=== PATIENT | male | born 1945 | race Caucasian/White ===

== ENCOUNTER 2017-02-14 16:07 | Emergency (ER) | payer MEDICARE ==
[2017-02-14 16:27] VITALS: O2SAT 96
--- NOTE | 2017-02-14 16:35 | ERPHSYRPT ---
- History of Present Illness Time Seen by Provider: 02/14/17 16:27 Source: patient, family Exam Limitations: clinical condition Physician History: The patient is a 71-year-old male with his complaining that he had an episode of confusion about an hour ago. He also had a headache. His headache has subsided and he is feeling better. His said that he is back to his normal self. He denies any pain. He has a mild cough. His past medical history is significant for Parkinson's disease, HTN, and high cholesterol. Timing/Duration: today Fever Severity: mild Fever Therapy FENDER FINISHER: none Associated Symptoms: confusion, cough Allergies/Adverse Reactions: No Known Drug Allergies Allergy (Unverified 02/14/17 16:31) Home Medications: Alendronate Sodium 70 mg [Fosamax 70 MG] 70 mg PO Q7D@0600 02/14/17 [ History] Aspirin 81 mg PO DAILY 02/14/17 [History] Atorvastatin Calcium [Lipitor] 40 mg PO DAILY 02/14/17 [History] Isosorbide Mononitrate 30 mg [Imdur 30 MG] 30 mg PO DAILY 02/14/17 [History ] Losartan Potassium 25 mg PO DAILY 02/14/17 [History] Naproxen 500 mg [Naprosyn 500 MG] 500 mg PO BID 02/14/17 [History] Hx Tetanus, Diphtheria Vaccination/Date Given: Yes Hx Influenza Vaccination/Date Given: Yes Hx Pneumococcal Vaccination/Date Given: No - Review of Systems Constitutional: No Fever, No Chills Eyes: No Symptoms Ears, Nose, & Throat: No Symptoms Respiratory: Cough Cardiac: No Chest Pain, No Edema, No Syncope Abdominal/Gastrointestinal: No Abdominal Pain, No Nausea, No Vomiting, No Diarrhea Genitourinary Symptoms: No Dysuria Musculoskeletal: No Back Pain, No Neck Pain Skin: No Rash Neurological: Headache, Other (confusion) Psychological: No Symptoms Endocrine: No Symptoms Hematologic/Lymphatic: No Symptoms Immunological/Allergic: No Symptoms All Other Systems: Reviewed and Negative - Past Medical History Pertinent Past Medical History: Yes Neurological History: Other Cardiac History: High Cholesterol, Hypertension Respiratory History: COPD - Past Surgical History Past Surgical History: Yes Gastrointestinal: Appendectomy - Social History Smoking Status: Former smoker Exposure to second hand smoke: Yes Drug Use: none Patient Lives Alone: No - Nursing Vital Signs Nursing Vital Signs: Initial Vital Signs Temperature 100.1 F 02/14/17 16:10 Pulse Rate 80 02/14/17 16:10 Respiratory Rate 18 02/14/17 16:10 Blood Pressure 162/98 02/14/17 16:10 O2 Sat by Pulse Oximetry 96 02/14/17 16:10 Pain Scale Pain Intensity 0 - Physical Exam General Appearance: no apparent distress, alert Eye Exam: PERRL/EOMI ENT Exam: normal ENT inspection, No pharyngeal erythema, No tonsillar exudate Neck Exam: supple, full range of motion, No meningismus Respiratory Exam: normal breath sounds, lungs clear, no respiratory distress Cardiovascular/Chest Exam: normal heart sounds, regular rate/rhythm, No murmur, No edema Gastrointestinal/Abdominal Exam: soft, non tender, no distention Rectal Exam: not done Extremity Exam: non-tender, normal range of motion, normal inspection, normal capillary refill, no pedal edema Neurologic Exam: alert, oriented x 3, cooperative, research nutritionist II-XII nml as tested, normal mood/affect, other (Parkinsonian tremors), No confusion Skin Exam: normal color, warm, dry, No rash SpO2 Interpretation: normal - Course EKG Interpreted by Me: RATE, Sinus Rhythm, NORMAL AXIS, NORMAL INTERVALS, Left Bundle Branch Block, NORMAL ST-T - Radiology Exams Chest X-ray Interpretation: Interpreted by me, Negative, Other (scattered granulomas) - CT Exams Head CT Interpretation: Tele-radiologist Report, No/Intracranial Hemorrhag, Other ( No acute intacranial pathology, sinusitis per Dr Espinoza.) Ordered Tests: Active Orders 24 hr Category Date Time Status EKG-ER Only STAT Care 02/14/17 16:36 Active IV Insertion STAT Care 02/14/17 16:36 Active CHEST 2 VIEWS (PA AND LAT) Stat Exams 02/14/17 16:41 Taken HEAD WITHOUT CONTRAST [CT] Stat Exams 02/14/17 16:38 Taken BLOOD CULTURE Stat Lab 02/14/17 16:49 Received CBC W DIFF Stat Lab 02/14/17 16:47 Completed CMP Stat Lab 02/14/17 16:47 Completed Lactic Acid Stat Lab 02/14/17 16:36 Completed TROPONIN Q3H Lab 02/14/17 16:50 Completed TROPONIN Q3H Lab 02/14/17 19:45 Ordered TROPONIN Q3H Lab 02/14/17 22:45 Ordered TROPONIN Q3H Lab 02/15/17 01:45 Ordered TROPONIN Q3H Lab 02/15/17 04:45 Ordered UA W/ MICROSCOPIC Stat Lab 02/14/17 17:54 Completed Medication Summary Discontinued Medications Generic Name Dose Route Start Last Admin Trade Name Gilbert PRN Reason Stop Dose Admin Acetaminophen 650 mg 02/14/17 16:36 02/14/17 16:47 Tylenol 325 Mg PO 02/14/17 16:37 650 mg STAT ONE Administration Acetaminophen Confirm 02/14/17 16:44 Tylenol 325 Mg Administered 02/14/17 16:45 Dose 650 mg .ROUTE .STK-MED ONE Sodium Chloride 1,000 mls @ 999 mls/hr 02/14/17 16:36 02/14/17 16:47 Sodium Chloride 0.9% 1000 Ml IV 02/14/17 17:36 999 mls/hr .Q1H1M STA Administration Sodium Chloride Confirm 02/14/17 16:44 Sodium Chloride 0.9% 1000 Ml Administered 02/14/17 16:45 Dose 1,000 mls @ ud .ROUTE .STK-MED ONE Lab/Rad Data: Laboratory Result Diagrams 02/14/17 16:47 02/14/17 16:47 Laboratory Results 02/14/17 02/14/17 02/14/17 Range/Units 17:54 16:50 16:47 WBC (4.0-10.5) K/mm3 RBC (4.1-5.6) M/mm3 Hgb (12.5-18.0) gm/dl Hct (42-50) % MCV (78-100) fl MCH (26-32) pg MCHC (32-36) g/dl RDW (11.5-14.0) % Plt Count (150-450) K/mm3 MPV (6-9.5) fl Gran % (36.0-66.0) % Lymphocytes % (24.0-44.0) % Monocytes % (0.0-12.0) % Eosinophils % (0.00-5.0) % Basophils % (0.0-0.4) % Basophils # (0-0.4) Sodium 143 (136-145) mEq/L Potassium 4.0 (3.5-5.1) mEq/L Chloride 104 (98-107) mEq/L Carbon Dioxide 29.6 (21-32) mEq/L Anion Gap 13.2 (5-15) MEQ/L BUN 29 H (9-20) mg/dL Creatinine 1.07 (0.55-1.30) mg/dl Estimated GFR > 60 ML/MIN Glucose 116 H (70-110) MG/DL Lactic Acid (0.4-2.0) Calcium 9.0 (8.5-10.1) mg/dL Total Bilirubin 0.50 (0.2-1.0) mg/dL AST 14 L (15-37) U/L ALT 11 L (12-78) U/L Alkaline Phosphatase 167 H (46-116) U/L Troponin I 0.021 (0.000-0.056) ng/ml Serum Total Protein 8.1 (6.4-8.2) gm/dL Albumin 4.0 (3.4-5.0) g/dL Ur Collection Type VOID Urine Color YELLOW (YELLOW) Urine Appearance CLEAR (CLEAR) Urine pH 5.0 (5-6) Ur Specific [place] 1.020 (1.005-1.025) Urine Protein NEGATIVE (Negative) Urine Ketones NEGATIVE (NEGATIVE) Urine Blood NEGATIVE (0-5) Juan Pablo/ul Urine Nitrite NEGATIVE (NEGATIVE) Urine Bilirubin NEGATIVE (NEGATIVE) Urine Urobilinogen NORMAL (0-1) mg/dL Ur Leukocyte Esterase TRACE (NEGATIVE) Urine Microscopic RBC 0-2 (0-2) /HPF Urine Microscopic WBC 2-5 (0-5) /HPF Ur Epithelial Cells FEW (FEW) /HPF Urine Bacteria FEW (NEGATIVE) /HPF Urine Glucose NEGATIVE (NEGATIVE) mg/dL Specimen Received 02/14/17 1800 02/14/17 02/14/17 Range/Units 16:47 16:36 WBC 6.4 (4.0-10.5) K/mm3 RBC 4.53 (4.1-5.6) M/mm3 Hgb 14.6 (12.5-18.0) gm/dl Hct 43.4 (42-50) % MCV 95.8 (78-100) fl MCH 32.2 H (26-32) pg MCHC 33.6 (32-36) g/dl RDW 13.1 (11.5-14.0) % Plt Count 147 L (150-450) K/mm3 MPV 11.0 H (6-9.5) fl Gran % 52.5 (36.0-66.0) % Lymphocytes % 38.1 (24.0-44.0) % Monocytes % 7.5 (0.0-12.0) % Eosinophils % 1.7 (0.00-5.0) % Basophils % 0.2 (0.0-0.4) % Basophils # 0.01 (0-0.4) Sodium (136-145) mEq/L Potassium (3.5-5.1) mEq/L Chloride (98-107) mEq/L Carbon Dioxide (21-32) mEq/L Anion Gap (5-15) MEQ/L BUN (9-20) mg/dL Creatinine (0.55-1.30) mg/dl Estimated GFR ML/MIN Glucose (70-110) MG/DL Lactic Acid 1.0 (0.4-2.0) Calcium (8.5-10.1) mg/dL Total Bilirubin (0.2-1.0) mg/dL AST (15-37) U/L ALT (12-78) U/L Alkaline Phosphatase (46-116) U/L Troponin I (0.000-0.056) ng/ml Serum Total Protein (6.4-8.2) gm/dL Albumin (3.4-5.0) g/dL Ur Collection Type Urine Color (YELLOW) Urine Appearance (CLEAR) Urine pH (5-6) Ur Specific [place] (1.005-1.025) Urine Protein (Negative) Urine Ketones (NEGATIVE) Urine Blood (0-5) Juan Pablo/ul Urine Nitrite (NEGATIVE) Urine Bilirubin (NEGATIVE) Urine Urobilinogen (0-1) mg/dL Ur Leukocyte Esterase (NEGATIVE) Urine Microscopic RBC (0-2) /HPF Urine Microscopic WBC (0-5) /HPF Ur Epithelial Cells (FEW) /HPF Urine Bacteria (NEGATIVE) /HPF Urine Glucose (NEGATIVE) mg/dL Specimen Received - Progress Progress: improved Counseled pt/family regarding: lab results, diagnosis, need for follow-up, rad results - Departure Time of Disposition: 18:25 Departure Disposition: Home Clinical Impression: TIA (transient ischemic attack) Condition: Stable Critical Care Time: No Referrals: RADHA CASTAÑEDA [Primary Care Provider] - Additional Instructions: You had a TIA. You also had a very low-grade fever. You were given Tylenol in the ER. You're also given aspirin 325 mg. Begin taking aspirin 81 mg daily. Follow-up tomorrow.
[2017-02-14] MEDS ORDERED: TYLENOL 325 MG PO ONE (16:36)
[2017-02-14] MEDS ORDERED: Sodium Chloride 0.9% 1000 ML 1,000 ML IV STA (16:36)
[2017-02-14] MEDS ORDERED: Sodium Chloride 0.9% 1000 ML 1,000 ML ONE (16:44)
[2017-02-14] MEDS ORDERED: TYLENOL 325 MG ONE (16:44)
[2017-02-14 16:54] LABS: BASOPHIL % 0.2 % (0.0-0.4); Eosinophil % 1.7 % (0.00-5.0); Granulocytes % 52.5 % (36.0-66.0); Lymphocytes % 38.1 % (24.0-44.0); Mean Cell Volume 95.8 fl (78-100); Mean Corpuscular Hemoglobin 32.2 pg (26-32); Monocytes % 7.5 % (0.0-12.0); Platelet Count 147 K/mm3 (150-450); Red Blood Count 4.53 M/mm3 (4.1-5.6); Red Cell Distribution Width 13.1 % (11.5-14.0); White Blood Count 6.4 K/mm3 (4.0-10.5)
[2017-02-14 17:15] LABS: ALKALINE PHOSPHATASE 167 U/L (46-116); ANION GAP 13.2 MEQ/L (5-15); BLOOD UREA NITROGEN 29 mg/dL (9-20); CHLORIDE 104 mEq/L (98-107); Carbon Dioxide 29.6 mEq/L (21-32); Glucose 116 MG/DL (70-110); SGOT/AST 14 U/L (15-37); SGPT/ALT 11 U/L (12-78); SODIUM 143 mEq/L (136-145); Total Protein 8.1 gm/dL (6.4-8.2)
[2017-02-14 18:17] LABS: ADD URINE CULTURE? NO (NO); Bacteria FEW /HPF (NEGATIVE); Bilirubin NEGATIVE (NEGATIVE); Blood NEGATIVE Ery/ul (0-5); COMPLETE URINE MICROSCOPIC? YES; Collection Type VOID; Epithelial Cells FEW /HPF (FEW); Glucose NEGATIVE (NEGATIVE); Leukocyte Esterase TRACE (NEGATIVE)
[2017-02-14] MEDS ORDERED: Ecotrin 325 MG PO STA (18:26)
[2017-02-14] MEDS ORDERED: BABY ASPIRIN 81 MG CHEW PO ONE (18:34)
[2017-02-14] MEDS ORDERED: BABY ASPIRIN 81 MG CHEW ONE (18:35)
[2017-02-14 18:56] VITALS: BP 162/88; PULSE 96
--- NOTE | 2017-02-14 21:29 | XRAY ---
Indication: Fever and cough. Comparison: None PA/lateral chest hyperinflated and clear with a few incidental calcified granulomas. Heart is not enlarged. Vascularity normal. Bony thorax intact. Impression: Nonacute hyperinflated chest with evidence for old granulomatous disease.
--- NOTE | 2017-02-14 21:32 | XRAY ---
Indication: Headache. Altered mental status. Multiple contiguous axial images obtained through the head without contrast. Comparison: None Age-appropriate global atrophy and minimal periventricular degenerative micro-ischemia bilaterally. No acute intracranial hemorrhage, abnormal extra-axial fluid collection, or mass effect. Fourth ventricle is midline without hydrocephalus. Bony calvarium intact. Visualized paranasal sinuses clear. There is partial opacification of the right mastoid air cells. Impression: 1. Nonacute senile brain. 2. Partial opacification of the right mastoid air cells presumably inflammatory. Comment: Preliminary interpretation was made by [facility]. No discrepancy. CTDI 59.47
== END 2017-02-14 18:56 | disposition home or self-care (01) ==
LOC: ED 16:07
DX: G45.9 Transient cerebral ischemic attack, unspecified (principal); G20 Parkinson's disease; I10 Essential (primary) hypertension; E78.00 Pure hypercholesterolemia, unspecified; R41.0 Disorientation, unspecified; R05 Cough; Z79.899 Other long term (current) drug therapy; J44.9 Chronic obstructive pulmonary disease, unspecified
CPT/HCPCS: 36000; 36415; 70450; 71020; 80053; 81000; 83605; 84484; 85025; 87040; 93005; 96360; 96361; 99284; A9270-GY

== ENCOUNTER 2019-06-10 14:58 | Emergency (ER) | payer MEDICARE ==
[2019-06-10] MEDS ORDERED: XYLOCAINE 1% HCL 20 ML MDV IJ ONE (14:59)
[2019-06-10 15:10] VITALS: BP 156/88
[2019-06-10 15:29] LABS: Absolute Neutrophil Ct (ANC) 2.21 (1.4-6.9); BASOPHIL % 0.2 % (0.0-0.4); Basophil (Absolute #) 0.01 (0-0.4); Eosinophil % 4.8 % (0.00-5.0); Hematocrit 43.6 % (42-50); Hemoglobin 14.5 gm/dl (12.5-18.0); Lymphocyte (Absolute #) 1.27 (1.0-4.6); Lymphocytes % 30.6 % (24.0-44.0); Mean Cell Volume 97.5 fl (78-100); Mean Corpuscular Hemoglobin 32.4 pg (26-32); Mean Corpuscular Hgb Concent. 33.3 g/dl (32-36); Monocyte (Absolute #) 0.46 (0.0-1.3); Monocytes % 11.1 % (0.0-12.0); Neutrophil % 53.3 % (36.0-66.0); Platelet Count 112 K/mm3 (150-450); Red Blood Count 4.47 M/mm3 (4.1-5.6); Red Cell Distribution Width 13.1 % (11.5-14.0); White Blood Count 4.2 K/mm3 (4.0-10.5)
[2019-06-10] MEDS ORDERED: Rocephin 1000 MG INJ IM ONE (15:31)
[2019-06-10 15:40] LABS: ALBUMIN 4.1 g/dL (3.5-5.0); ALKALINE PHOSPHATASE 134 U/L (38-126); ANION GAP 12.6 MEQ/L (5-15); BLOOD UREA NITROGEN 18 mg/dL (9-20); CHLORIDE 100 mmol/L (98-107); Calcium 9.1 mg/dL (8.4-10.2); Carbon Dioxide 29 mmol/L (22-30); Creatinine 1 0.99 mg/dL (0.66-1.25); Glucose 106 mg/dL (74-106); Potassium 4.1 mmol/L (3.5-5.1); SGOT/AST 20 U/L (17-59); SGPT/ALT 6 U/L (0-50); SODIUM 138 mmol/L (137-145); Total Protein 7.5 g/dL (6.3-8.2)
--- NOTE | 2019-06-10 15:47 | ERPHSYRPT ---
- History of Present Illness Time Seen by Provider: 06/10/19 15:43 Source: patient, family Exam Limitations: no limitations Patient Subjective Stated Complaint: Pt states "I am on a z pack and I am not any better. I am having a hard time breathing." Triage Nursing Assessment: Pt presented alert and oriented X 3, skni pwd Pt ambulates with an upright steady gait, able to speak in clear full sentencesc. Pt wheezes noted throughout. Physician History: Pt states "I am on a z pack and I am not any better. I am having a hard time breathing." Patient was diagnosed with bronchitis and started Zpak 3 days ago but he is not feeling better and cough is getting. No fever Timing/Duration: day(s) Severity: moderate Associated Symptoms: cough Allergies/Adverse Reactions: No Known Drug Allergies Allergy (Verified 06/10/19 15:10) Home Medications: Aspirin 81 mg PO DAILY 02/14/17 [History] Atorvastatin Calcium [Lipitor] 40 mg PO HS 02/14/17 [History] Isosorbide Mononitrate 30 mg [Imdur 30 MG] 30 mg PO DAILY 02/14/17 [History ] Losartan Potassium 25 mg PO DAILY 02/14/17 [History] Azithromycin 250 mg PO DAILY 06/10/19 [History] Carbidopa/Levodopa [Carbidopa-Levo ER 50-200 Tab] 1 each PO TID 06/10/19 [ History] Rivaroxaban [Xarelto] 20 mg PO DAILY 06/10/19 [History] Ropinirole HCl 1 mg PO TID 06/10/19 [History] Hx Tetanus, Diphtheria Vaccination/Date Given: Yes Hx Influenza Vaccination/Date Given: Yes Hx Pneumococcal Vaccination/Date Given: Yes Immunizations Up to Date: Yes - Review of Systems Constitutional: No Fever, No Chills Eyes: No Symptoms Ears, Nose, & Throat: No Symptoms Respiratory: Cough, No Dyspnea Cardiac: No Chest Pain, No Edema, No Syncope Abdominal/Gastrointestinal: No Abdominal Pain, No Nausea, No Vomiting, No Diarrhea Genitourinary Symptoms: No Dysuria Musculoskeletal: No Back Pain, No Neck Pain Skin: No Rash Neurological: No Dizziness, No Focal Weakness, No Sensory Changes Psychological: No Symptoms Endocrine: No Symptoms All Other Systems: Reviewed and Negative - Past Medical History Pertinent Past Medical History: Yes Neurological History: Other Cardiac History: High Cholesterol, Hypertension Respiratory History: COPD Other Medical History: parkinsons disease - Past Surgical History Past Surgical History: Yes Gastrointestinal: Appendectomy - Social History Smoking Status: Former smoker Exposure to second hand smoke: Yes Drug Use: none Patient Lives Alone: No - Nursing Vital Signs Nursing Vital Signs: Initial Vital Signs Temperature 97.7 F 06/10/19 15:05 Pulse Rate 78 06/10/19 15:05 Respiratory Rate 24 06/10/19 15:05 Blood Pressure 156/88 06/10/19 15:05 O2 Sat by Pulse Oximetry 92 L 06/10/19 15:05 Pain Scale Pain Intensity 0 - Physical Exam General Appearance: no apparent distress, alert Eye Exam: PERRL/EOMI, eyes nml inspection Ears, Nose, Throat Exam: normal ENT inspection, TMs normal, pharynx normal, moist mucous membranes Neck Exam: normal inspection, non-tender, supple, full range of motion Respiratory Exam: diminished breath sounds, rhonchi, No respiratory distress Cardiovascular Exam: regular rate/rhythm, normal heart sounds, normal peripheral pulses Gastrointestinal/Abdomen Exam: soft, normal bowel sounds, No tenderness, No mass Back Exam: normal inspection, normal range of motion, No CVA tenderness, No vertebral tenderness Extremity Exam: normal inspection, normal range of motion, pelvis stable Neurologic Exam: alert, oriented x 3, cooperative, normal mood/affect, nml cerebellar function, nml station & gait, sensation nml, No motor deficits Skin Exam: normal color, warm, dry, No rash Lymphatic Exam: No adenopathy SpO2: 99 - Course Nursing assessment & vital signs reviewed: Yes - Radiology Exams Chest X-ray Interpretation: Reviewed by me (left mid lung infiltrate) Ordered Tests: Active Orders 24 hr Category Date Time Status CHEST 2 VIEWS (PA AND LAT) Stat Exams 06/10/19 15:07 Taken CBC W DIFF Stat Lab 06/10/19 15:27 Completed CMP Stat Lab 06/10/19 15:27 Completed Medication Summary Discontinued Medications Generic Name Dose Route Start Last Admin Trade Name Freq PRN Reason Stop Dose Admin Ceftriaxone Sodium 1,000 mg 06/10/19 15:31 Rocephin 1000 Mg Inj IM 06/10/19 15:32 STAT ONE Lab/Rad Data: Laboratory Result Diagrams 06/10/19 15:27 06/10/19 15:27 Laboratory Results 06/10/19 06/10/19 Range/Units 15:27 15:27 WBC 4.2 (4.0-10.5) K/mm3 RBC 4.47 (4.1-5.6) M/mm3 Hgb 14.5 (12.5-18.0) gm/dl Hct 43.6 (42-50) % MCV 97.5 (78-100) fl MCH 32.4 H (26-32) pg MCHC 33.3 (32-36) g/dl RDW 13.1 (11.5-14.0) % Plt Count 112 L (150-450) K/mm3 MPV 10.0 H (6-9.5) fl Gran % 53.3 (36.0-66.0) % Eos # (Auto) 0.20 (0-0.5) Absolute Lymphs (auto) 1.27 (1.0-4.6) Absolute Monos (auto) 0.46 (0.0-1.3) Lymphocytes % 30.6 (24.0-44.0) % Monocytes % 11.1 (0.0-12.0) % Eosinophils % 4.8 (0.00-5.0) % Basophils % 0.2 (0.0-0.4) % Absolute Granulocytes 2.21 (1.4-6.9) Basophils # 0.01 (0-0.4) Sodium 138 (137-145) mmol/L Potassium 4.1 (3.5-5.1) mmol/L Chloride 100 (98-107) mmol/L Carbon Dioxide 29 (22-30) mmol/L Anion Gap 12.6 (5-15) MEQ/L BUN 18 (9-20) mg/dL Creatinine 0.99 (0.66-1.25) mg/dL Estimated GFR > 60.0 ML/MIN Glucose 106 (74-106) mg/dL Calcium 9.1 (8.4-10.2) mg/dL Total Bilirubin 1.00 (0.2-1.3) mg/dL AST 20 (17-59) U/L ALT 6 (0-50) U/L Alkaline Phosphatase 134 H (38-126) U/L Serum Total Protein 7.5 (6.3-8.2) g/dL Albumin 4.1 (3.5-5.0) g/dL - Progress Progress: unchanged Counseled pt/family regarding: lab results, diagnosis, need for follow-up, rad results - Departure Departure Disposition: Home Clinical Impression: Pneumonia due to gram-positive bacteria Condition: Stable Critical Care Time: No Referrals: RADHA CASTAÑEDA [Primary Care Provider] - Instructions: Pneumonia, Adult (DC) Additional Instructions: Discharge/Care Plan SHANKAR VIVEROS was seen on 06/10/19 in the Emergency Room. The patient was counseled regarding Diagnosis,Lab results, Imaging studies, need for follow up and when to return to the Emergency Room. Prescriptions given: Discharge Note I have spoken with the patient and/or caregivers. I have explained the patient' s condition, diagnosis and treatment plan based on the information available to me at this time. I have answered the patient's and/or caregiver's questions and addressed any concerns. The patient and/or caregivers have as good understanding of the patient's diagnosis, condition and treatment plan as can be expected at this point. The vital signs have been stable. The patient's condition is stable and appropriate for discharge from the emergency department. The patient will pursue further outpatient evaluation with the primary care physician or other designated or consulting physician as outlined in the discharge instructions. The patient and/or caregivers are agreeable to this plan of care and follow-up instructions have been explained in detail. The patient and/or caregivers have received these instruction. The patient/and or caregivers are aware that any significant change in condition or worsening of symptoms should prompt an immediate return to this or the closest emergency department or call 911. SHANKAR VIVEROS was seen on 06/10/19 n the Emergency Room. At that time you were treated for an emergent condition, during your visit Laboratory, Radiology and/or other procedures may have been ordered. It is very important that you follow-up with your Primary Care Physician RADHA CASTAÑEDA within the next 24-48 hours to review your Emergency Room visit and the final results of testing that was ordered. Some test results such as Urine Cultures, Blood Cultures, and other cultures if ordered will not be finalized for 24-48 hours. If you do not have a Primary Care Provider please call the medical records department at [phone] ext [phone] to obtain a copy of your results or you may sign into our patient portal to obtain these results by visiting us @ [email or web address] and completing the following steps: 1. Click on the Patient Portal link 2. Click the Patient Self Enrollment Link to complete the enrollment form and entering your 3. Once the enrollment form is completed you will receive an email with a temporary ID and password at the email address you provided. 4. Next choose a user name and password. Your user name must be at least 4 characters long and your password must be at least 4 characters long. 5. Choose a security question from the list and provide your answer to the question. If you already have signed into the Health Portal you may access your Health Care Information 25/01 by the following steps: 1. Login to our website @ [email or web address] 2. Enter your original user name and password. FAQS The [facility] Portal is an online tool that contains your Lab Results, Radiology Reports, Visit History, Discharge Instructions and Health Summary Lab and Radiology Results will not be available for 72 hours on the portal. The Portal is a secure site, passwords are encryted and URLs are re-written so they cannot be copied and pasted. You and authorized family members are the only ones who can access your Portal. Also there is a timeout feature that protects your information if you leave the Portal page open. If you have technical difficulty please use the Contact Us link on the page this will allow you to submit any questions you have regarding the Portal or you may contact the Medical Record Department at [phone] ext [phone]. Prescriptions: Cephalexin Mh 500 mg [Keflex 500 mg] 500 mg PO Q6H #40 capsule Methylprednisolone Packet [Medrol Dosepack] 4 mg PO UD #30 packet
[2019-06-10] MEDS ORDERED: Rocephin 1000 MG INJ ONE (15:57)
[2019-06-10 16:11] VITALS: PULSE 77; O2SAT 97
--- NOTE | 2019-06-10 20:08 | XRAY ---
Indication: Cough and congestion. Comparison: February 14, 2017. PA/lateral chest demonstrates new minimal bibasilar infiltrates versus atelectasis. Upper lungs clear. Heart is not enlarged. Bony thorax intact again with mild degenerative changes. Impression: Bibasilar infiltrates/atelectasis. Correlate clinically.
== END 2019-06-10 16:17 | disposition home or self-care (01) ==
LOC: ED 14:58
DX: J15.9 Unspecified bacterial pneumonia (principal); Z79.899 Other long term (current) drug therapy; J44.9 Chronic obstructive pulmonary disease, unspecified; I10 Essential (primary) hypertension; E78.00 Pure hypercholesterolemia, unspecified; G20 Parkinson's disease
CPT/HCPCS: 36415; 71046; 80053; 85025; 96372; 99284; J0696

== ENCOUNTER 2020-08-20 16:17 | Emergency (ER) | payer MEDICARE ==
--- NOTE | 2020-08-20 16:53 | ERPHSYRPT ---
- History of Present Illness Time Seen by Provider: 08/20/20 16:40 Source: patient Exam Limitations: no limitations Patient Subjective Stated Complaint: pt here for dizziness that started yesterday, he denies any falls, and co nausea Triage Nursing Assessment: pt alert, face mask in place, pt hard to understatnd at times due to parkinsons, pt was able to get undressed and to bed with assist of two Physician History: This is a 75-year-old white male has a history of Parkinson's who presents with dizziness that began yesterday and is intermittent. He denies any new medications. Patient denies chest pain. He denies shortness of breath. He has no abdominal pain. He has had no vomiting or diarrhea symptoms. He has had no fevers. Patient denies a headache. He also denies acute traumatic injury to his head. He has had no myalgias or arthralgias. Timing/Duration: yesterday Severity: mild Baseline/Normal Cognition: alert oriented x 3 Current Cognition: alert oriented x 3 Associated Symptoms: denies symptoms Allergies/Adverse Reactions: No Known Drug Allergies Allergy (Verified 08/20/20 16:32) Home Medications: Aspirin 81 mg PO DAILY 02/14/17 [History] Isosorbide Mononitrate 30 mg [Imdur 30 MG] 30 mg PO DAILY 02/14/17 [History] Losartan Potassium 25 mg PO DAILY 02/14/17 [History] Carbidopa/Levodopa [Carbidopa-Levo ER 50-200 Tab] 1 each PO QID 06/10/19 [History] Amantadine HCl [Amantadine] 100 mg PO BID 08/20/20 [History] Cholecalciferol (Vitamin D3) [Vitamin D3] 50,000 units PO WEEKLY 08/20/20 [History] Hx Tetanus, Diphtheria Vaccination/Date Given: Yes Hx Influenza Vaccination/Date Given: Yes Hx Pneumococcal Vaccination/Date Given: Yes Immunizations Up to Date: Yes Travel Risk - International Travel Have you traveled outside of the country in past 3 weeks: No - Coronavirus Screening Are you exhibiting any of the following symptoms?: No Close contact with a COVID-19 positive Pt in past 14-21 Days: No - Review of Systems Constitutional: No Symptoms Eyes: No Symptoms Ears, Nose, & Throat: No Symptoms Respiratory: No Symptoms Cardiac: No Symptoms Abdominal/Gastrointestinal: No Symptoms Genitourinary Symptoms: No Symptoms Musculoskeletal: No Symptoms Skin: No Symptoms Neurological: Dizziness Psychological: No Symptoms Endocrine: No Symptoms Hematologic/Lymphatic: No Symptoms Immunological/Allergic: No Symptoms All Other Systems: Reviewed and Negative - Past Medical History Pertinent Past Medical History: Yes Neurological History: Stroke Cardiac History: High Cholesterol, Hypertension Respiratory History: COPD Other Medical History: HAD CVA A FEW YEARS AGO AND WAS HOPSITALIZED FOR A FEW WEEKS. HE IS NOW ON BLOOD THINNERS TO PREVENT FURTHER CVA. - Past Surgical History Past Surgical History: Yes Gastrointestinal: Appendectomy - Social History Smoking Status: Former smoker Exposure to second hand smoke: Yes Drug Use: none Patient Lives Alone: No - Nursing Vital Signs Nursing Vital Signs: Initial Vital Signs Temperature 96.2 F 08/20/20 16:25 Pulse Rate 62 08/20/20 16:25 Respiratory Rate 18 08/20/20 16:25 Blood Pressure 202/104 08/20/20 16:25 O2 Sat by Pulse Oximetry 97 08/20/20 16:25 Pain Scale Pain Intensity 0 - Sanjana Coma Scale Best Eye Response (Sanjana): (4) open spontaneously Best Verbal Response (Sanjana): (5) oriented Best Motor Response ([place]): (6) obeys commands Sanjana Total: 15 - Physical Exam General Appearance: no apparent distress, alert, anxiety Eye Exam: bilateral eye: normal inspection, PERRL, EOMI Ears, Nose, Throat Exam: normal ENT inspection, moist mucous membranes Neck Exam: normal inspection, non-tender, supple Respiratory: normal breath sounds, lungs clear, airway intact, No chest tenderness, No respiratory distress Cardiovascular: regular rate/rhythm, normal heart sounds, normal peripheral pulses Gastrointestinal: soft, normal bowel sounds, No tenderness Rectal Exam: not done Back Exam: normal inspection, normal range of motion, No CVA tenderness, No vertebral tenderness Extremity Exam: normal inspection, normal range of motion, pelvis stable Mental Status: alert, oriented x 3, 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 There are no signs of acute ischemic changes on either EKG.) Ordered Tests: Active Orders 24 hr Category Date Time Status EKG-ER Only STAT Care 08/20/20 16:48 Active IV Insertion STAT Care 08/20/20 16:48 Active HEAD WITHOUT CONTRAST [CT] Stat Exams 08/20/20 16:49 Completed CBC W DIFF Stat Lab 08/20/20 16:45 Completed CMP Stat Lab 08/20/20 16:45 Completed Lactic Acid Stat Lab 08/20/20 17:00 Completed MAGNESIUM Stat Lab 08/20/20 16:45 Completed TROPONIN Q3H Lab 08/20/20 16:45 Completed TROPONIN Q3H Lab 08/20/20 20:00 Ordered TROPONIN Q3H Lab 08/20/20 23:00 Ordered TROPONIN Q3H Lab 08/21/20 02:00 Ordered TROPONIN Q3H Lab 08/21/20 05:00 Ordered UA W/RFX UR CULTURE Stat Lab 08/20/20 17:29 Completed Lab/Rad Data: Laboratory Result Diagrams 08/20/20 16:45 08/20/20 16:45 Laboratory Results 08/20/20 08/20/20 08/20/20 Range/Units 17:29 17:00 16:45 WBC (4.0-10.5) K/mm3 RBC (4.1-5.6) M/mm3 Hgb (12.5-18.0) gm/dl Hct (42-50) % MCV (78-100) fl MCH (26-32) pg MCHC (32-36) g/dl RDW (11.5-14.0) % Plt Count (150-450) K/mm3 MPV (7.5-11.0) fl Gran % (36.0-66.0) % Eos # (Auto) (0-0.5) Absolute Lymphs (auto) (1.0-4.6) Absolute Monos (auto) (0.0-1.3) Lymphocytes % (24.0-44.0) % Monocytes % (0.0-12.0) % Eosinophils % (0.00-5.0) % Basophils % (0.0-0.4) % Absolute Granulocytes (1.4-6.9) Basophils # (0-0.4) Sodium (137-145) mmol/L Potassium (3.5-5.1) mmol/L Chloride (98-107) mmol/L Carbon Dioxide (22-30) mmol/L Anion Gap (5-15) MEQ/L BUN (9-20) mg/dL Creatinine (0.66-1.25) mg/dL Estimated GFR ML/MIN Glucose (74-106) mg/dL Lactic Acid 1.3 (0.4-2.0) Calcium (8.4-10.2) mg/dL Magnesium (1.6-2.3) mg/dL Total Bilirubin (0.2-1.3) mg/dL AST (17-59) U/L ALT (0-50) U/L Alkaline Phosphatase (38-126) U/L Troponin I < 0.012 (0.000-0.034) ng/mL Serum Total Protein (6.3-8.2) g/dL Albumin (3.5-5.0) g/dL Urine Color YELLOW (YELLOW) Urine Appearance CLEAR (CLEAR) Urine pH 5.0 (5-6) Ur Specific [place] 1.023 (1.005-1.025) Urine Protein NEGATIVE (Negative) Urine Ketones SMALL (NEGATIVE) Urine Blood SMALL (0-5) [place]/ul Urine Nitrite NEGATIVE (NEGATIVE) Urine Bilirubin NEGATIVE (NEGATIVE) Urine Urobilinogen 4 (0-1) mg/dL Ur Leukocyte Esterase NEGATIVE (NEGATIVE) Urine WBC (Auto) 0-2 (0-5) /HPF Urine RBC (Auto) 16-25 (0-2) /HPF U Epithel Cells (Auto) NONE (FEW) /HPF Urine Bacteria (Auto) NONE (NEGATIVE) /HPF Urine Mucus (Auto) SLIGHT (NEGATIVE) /HPF Urine Culture Reflexed NO (NO) Urine Glucose NEGATIVE (NEGATIVE) mg/dL 08/20/20 08/20/20 Range/Units 16:45 16:45 WBC 7.2 (4.0-10.5) K/mm3 RBC 4.57 (4.1-5.6) M/mm3 Hgb 15.2 (12.5-18.0) gm/dl Hct 44.4 (42-50) % MCV 97.2 (78-100) fl MCH 33.3 H (26-32) pg MCHC 34.2 (32-36) g/dl RDW 13.0 (11.5-14.0) % Plt Count 148 L (150-450) K/mm3 MPV 11.1 H (7.5-11.0) fl Gran % 77.8 H (36.0-66.0) % Eos # (Auto) 0.04 (0-0.5) Absolute Lymphs (auto) 1.14 (1.0-4.6) Absolute Monos (auto) 0.40 (0.0-1.3) Lymphocytes % 15.9 L (24.0-44.0) % Monocytes % 5.6 (0.0-12.0) % Eosinophils % 0.6 (0.00-5.0) % Basophils % 0.1 (0.0-0.4) % Absolute Granulocytes 5.60 (1.4-6.9) Basophils # 0.01 (0-0.4) Sodium 134 L (137-145) mmol/L Potassium 4.5 (3.5-5.1) mmol/L Chloride 94 L (98-107) mmol/L Carbon Dioxide 32 H (22-30) mmol/L Anion Gap 12.3 (5-15) MEQ/L BUN 22 H (9-20) mg/dL Creatinine 0.93 (0.66-1.25) mg/dL Estimated GFR > 60.0 ML/MIN Glucose 135 H (74-106) mg/dL Lactic Acid (0.4-2.0) Calcium 9.5 (8.4-10.2) mg/dL Magnesium 1.8 (1.6-2.3) mg/dL Total Bilirubin 1.10 (0.2-1.3) mg/dL AST 17 (17-59) U/L ALT 4 (0-50) U/L Alkaline Phosphatase 153 H (38-126) U/L Troponin I (0.000-0.034) ng/mL Serum Total Protein 7.9 (6.3-8.2) g/dL Albumin 4.4 (3.5-5.0) g/dL Urine Color (YELLOW) Urine Appearance (CLEAR) Urine pH (5-6) Ur Specific [place] (1.005-1.025) Urine Protein (Negative) Urine Ketones (NEGATIVE) Urine Blood (0-5) [place]/ul Urine Nitrite (NEGATIVE) Urine Bilirubin (NEGATIVE) Urine Urobilinogen (0-1) mg/dL Ur Leukocyte Esterase (NEGATIVE) Urine WBC (Auto) (0-5) /HPF Urine RBC (Auto) (0-2) /HPF U Epithel Cells (Auto) (FEW) /HPF Urine Bacteria (Auto) (NEGATIVE) /HPF Urine Mucus (Auto) (NEGATIVE) /HPF Urine Culture Reflexed (NO) Urine Glucose (NEGATIVE) mg/dL - Progress Progress: unchanged, re-examined Progress Note: 08/20/20 17:30 Cat scan of the head without contrast (comparison 08/29/2018): New finding of an old infarct in the region of the left centrum semiovale. Atrophy and degenerative changes noted. No acute intracranial abnormalities present 08/20/20 17:32 08/20/20 17:49 This patient has chronic intermittent dizziness. He also has a history of Parkinson's disease and is on amantadine. I have chosen not to prescribe him any meclizine because of the additive anticholinergic effects. The patient does not have an emergency issue at this time. I think the safest course of management for this patient is to have him continue drinking fluids well and to take his medication as prescribed. He is also told to call his neurologist tomorrow morning and to obtain further management and recommendations from his neurologist. Counseled pt/family regarding: lab results, diagnosis, need for follow-up, rad results - Departure Departure Disposition: Home Clinical Impression: Dizziness Condition: Stable Critical Care Time: No Referrals: RADHA CASTAÑEDA [Primary Care Provider] - Additional Instructions: Drink plenty of fluids. Take your medication as prescribed. Call your neurologist tomorrow morning and obtain further recommendations and management protocol
[2020-08-20 17:05] LABS: BASOPHIL % 0.1 % (0.0-0.4); Basophil (Absolute #) 0.01 (0-0.4); Eosinophil % 0.6 % (0.00-5.0); Eosinophil (Absolute #) 0.04 (0-0.5); Hematocrit 44.4 % (42-50); Hemoglobin 15.2 gm/dl (12.5-18.0); Lymphocyte (Absolute #) 1.14 (1.0-4.6); Lymphocytes % 15.9 % (24.0-44.0); Mean Cell Volume 97.2 fl (78-100); Mean Corpuscular Hemoglobin 33.3 pg (26-32); Mean Corpuscular Hgb Concent. 34.2 g/dl (32-36); Mean Platelet Volume 11.1 fl (7.5-11.0); Monocytes % 5.6 % (0.0-12.0); Neutrophil % 77.8 % (36.0-66.0); Platelet Count 148 K/mm3 (150-450); Red Blood Count 4.57 M/mm3 (4.1-5.6); White Blood Count 7.2 K/mm3 (4.0-10.5)
[2020-08-20 17:09] LABS: ALBUMIN 4.4 g/dL (3.5-5.0); ALKALINE PHOSPHATASE 153 U/L (38-126); ANION GAP 12.3 MEQ/L (5-15); BLOOD UREA NITROGEN 22 mg/dL (9-20); CHLORIDE 94 mmol/L (98-107); Calcium 9.5 mg/dL (8.4-10.2); Carbon Dioxide 32 mmol/L (22-30); Creatinine 1 0.93 mg/dL (0.66-1.25); EST GLOMERULAR FILTRATION RATE > 60.0 ML/MIN; Glucose 135 mg/dL (74-106); MAGNESIUM 1.8 mg/dL (1.6-2.3); Potassium 4.5 mmol/L (3.5-5.1); SGOT/AST 17 U/L (17-59); SODIUM 134 mmol/L (137-145); Total Protein 7.9 g/dL (6.3-8.2)
[2020-08-20 17:10] LABS: SGPT/ALT 4 U/L (0-50)
--- NOTE | 2020-08-20 17:25 | XRAY ---
Indication: Dizziness. Parkinson's disease. Multiple contiguous axial images obtained through the head without contrast. Comparison: August 29, 2018. The remains age-appropriate global atrophy and minimal periventricular degenerative micro-ischemia. New 1 cm focus old infarct left mid centrum semiovale. No acute intracranial hemorrhage, abnormal extra-axial fluid collection, or mass effect. Fourth ventricle is midline without hydrocephalus. Bony calvarium intact. There remains mild mucosal thickening right sphenoid sinus and partial opacification of the right mastoid air cells. Impression: 1. New finding small old infarct left centrum semiovale. 2. Atrophy and degenerative micro-ischemia within normal limits for patient's age. 3. No acute intracranial abnormalities. 4. Again incidental right sphenoid sinus mucosal thickening and partial opacification right mastoid air cells presumed inflammatory.
[2020-08-20 17:38] LABS: Appearance CLEAR (CLEAR); Bilirubin NEGATIVE (NEGATIVE); Blood SMALL Ery/ul (0-5); Glucose NEGATIVE (NEGATIVE); Ketones SMALL (NEGATIVE); Leukocyte Esterase NEGATIVE (NEGATIVE); Mucus SLIGHT /HPF (NEGATIVE); Nitrite NEGATIVE (NEGATIVE); Protein,Urine Dip NEGATIVE (Negative); Specific Gravity 1.023 (1.005-1.025); Urobilinogen 4 mg/dL (0-1); WBC 0-2 /HPF (0-5)
[2020-08-20 18:34] VITALS: BP 163/83; PULSE 78; O2SAT 98
== END 2020-08-20 18:35 | disposition home or self-care (01) ==
LOC: ED 16:17
DX: R42 Dizziness and giddiness (principal); E78.00 Pure hypercholesterolemia, unspecified; I10 Essential (primary) hypertension; J44.9 Chronic obstructive pulmonary disease, unspecified; Z79.899 Other long term (current) drug therapy
CPT/HCPCS: 36000; 36415; 70450; 80053; 81001; 83605; 83735; 84484; 85025; 93005; 99284

== ENCOUNTER 2021-02-23 00:23 | Emergency (ER) | payer MEDICARE ==
--- NOTE | 2021-02-23 00:29 | ERPHSYRPT ---
- History of Present Illness Time Seen by Provider: 02/23/21 00:29 Source: patient, family Exam Limitations: clinical condition Physician History: This is a 75-year-old white male who has a history of Parkinson's disease, hypertension and stroke in the past. He is not on any new medications. He is on anticoagulation therapy chronically. He presents with a history of intermittent dizziness and headache. Patient's significant other is here in the emergency room as well and states that in the last few weeks he had an episode of dizziness and was found to be dehydrated and have a urinary tract infection. Other than the headache and the dizziness, patient has no other symptoms of pain. He has no chest pain. He has no shortness of breath. He has no abdominal pain. He has no nausea vomiting or diarrhea. He has no fevers. He did not suffer any acute trauma to his head. Timing/Duration: today Severity: mild Character of Deficits: none Deficits: no difficulties Baseline/Normal Cognition: alert oriented x 3 Current Cognition: alert oriented x 3 Baseline Gait: uses walker (And also walks with assistance.) Associated Symptoms: headache Allergies/Adverse Reactions: No Known Drug Allergies Allergy (Verified 02/23/21 00:37) Home Medications: Aspirin 81 mg PO DAILY 02/14/17 [History] Isosorbide Mononitrate 30 mg [Imdur 30 MG] 30 mg PO DAILY 02/14/17 [History] Losartan Potassium 25 mg PO DAILY 02/14/17 [History] Carbidopa/Levodopa [Carbidopa-Levo ER 50-200 Tab] 1 each PO QID 06/10/19 [Hist ory] Amantadine HCl [Amantadine] 100 mg PO BID 08/20/20 [History] Cholecalciferol (Vitamin D3) [Vitamin D3] 50,000 units PO WEEKLY 08/20/20 [History] Hx Tetanus, Diphtheria Vaccination/Date Given: Yes Hx Influenza Vaccination/Date Given: Yes Hx Pneumococcal Vaccination/Date Given: Yes Travel Risk - International Travel Have you traveled outside of the country in past 3 weeks: No - Coronavirus Screening Are you exhibiting any of the following symptoms?: No Close contact with a COVID-19 positive Pt in past 14-21 Days: No - Review of Systems Constitutional: No Symptoms Eyes: No Symptoms Ears, Nose, & Throat: No Symptoms Respiratory: No Symptoms Cardiac: No Symptoms Abdominal/Gastrointestinal: No Symptoms Genitourinary Symptoms: No Symptoms Musculoskeletal: No Symptoms Skin: No Symptoms Neurological: Dizziness, Headache Psychological: No Symptoms Endocrine: No Symptoms Hematologic/Lymphatic: No Symptoms Immunological/Allergic: No Symptoms All Other Systems: Reviewed and Negative - Past Medical History Pertinent Past Medical History: Yes Neurological History: Stroke Cardiac History: High Cholesterol, Hypertension Respiratory History: COPD Other Medical History: HAD CVA A FEW YEARS AGO AND WAS HOPSITALIZED FOR A FEW WEEKS. HE IS NOW ON BLOOD THINNERS TO PREVENT FURTHER CVA. - Past Surgical History Past Surgical History: Yes Gastrointestinal: Appendectomy - Social History Smoking Status: Former smoker Exposure to second hand smoke: Yes Drug Use: none Patient Lives Alone: No - Nursing Vital Signs Nursing Vital Signs: Initial Vital Signs Temperature 98.4 F 02/23/21 00:38 Pulse Rate 82 02/23/21 00:38 Respiratory Rate 20 02/23/21 00:38 Blood Pressure 125/88 02/23/21 00:38 O2 Sat by Pulse Oximetry 95 02/23/21 00:38 Pain Scale Pain Intensity 2 - Sanjana Coma Scale Best Eye Response ([place]): (4) open spontaneously Best Verbal Response ([place]): (5) oriented Best Motor Response ([place]): (6) obeys commands Sanjana Total: 15 - Physical Exam General Appearance: no apparent distress, alert Eye Exam: bilateral eye: normal inspection, PERRL, EOMI Ears, Nose, Throat Exam: normal ENT inspection, dry mucous membranes Neck Exam: normal inspection, non-tender, supple, full range of motion Respiratory: normal breath sounds, lungs clear, airway intact, No chest tenderness, No respiratory distress Cardiovascular: regular rate/rhythm, normal heart sounds, normal peripheral pulses Gastrointestinal: soft, normal bowel sounds, No tenderness Rectal Exam: not done Back Exam: normal inspection, normal range of motion, No CVA tenderness, No vertebral tenderness Extremity Exam: normal inspection, normal range of motion, pelvis stable, other (Patient does have a parkinsonian tremors of his upper extremities bilaterally and his lower extremities bilaterally.) Mental Status: alert, oriented x 3, cooperative core placer Exam: normal hearing, normal speech, PERRL, tongue midline Motor/Sensory: no motor deficit, no sensory deficit, no pronator drift Skin Exam: normal color, warm, dry SpO2 Interpretation: normal O2 Delivery: Room Air Ordered Tests: Active Orders 24 hr Category Date Time Status EKG-ER Only STAT Care 02/23/21 00:37 Active IV Insertion STAT Care 02/23/21 00:37 Active NPO (ED) STAT Care 02/23/21 00:38 Active Pulse Oximetry (ED) STAT Care 02/23/21 00:37 Active HEAD WITHOUT CONTRAST [CT] Stat Exams 02/23/21 00:38 Taken CBC W DIFF Stat Lab 02/23/21 00:51 Completed CMP Stat Lab 02/23/21 00:51 Completed CULTURE,URINE Stat Lab 02/23/21 02:10 Received UA W/RFX UR CULTURE Stat Lab 02/23/21 02:10 Completed Medication Summary Generic Name Dose Route Start Last Admin Trade Name Freq PRN Reason Stop Dose Admin Sodium Chloride 1,000 mls @ 50 mls/hr 02/23/21 00:45 02/23/21 01:24 Sodium Chloride 0.9% 1000 Ml IV 03/25/21 00:44 50 mls/hr .Q20H VAN Administration Ceftriaxone Sodium/Dextrose 1 g in 50 mls @ 100 mls/hr 02/23/21 03:25 Rocephin 1 Gm-D5w 50 Ml Bag IV 02/23/21 03:54 STAT STA Lab/Rad Data: Laboratory Result Diagrams 02/23/21 00:51 02/23/21 00:51 Laboratory Results 02/23/21 02/23/21 02/23/21 Range/Units 02:10 00:51 00:51 WBC 5.0 (4.0-10.5) K/mm3 RBC 4.34 (4.1-5.6) M/mm3 Hgb 14.4 (12.5-18.0) gm/dl Hct 42.9 (42-50) % MCV 98.8 (78-100) fl MCH 33.2 H (26-32) pg MCHC 33.6 (32-36) g/dl RDW 12.6 (11.5-14.0) % Plt Count 117 L (150-450) K/mm3 MPV 10.7 (7.5-11.0) fl Gran % 71.6 H (36.0-66.0) % Eos # (Auto) 0.06 (0-0.5) Absolute Lymphs (auto) 0.84 L (1.0-4.6) Absolute Monos (auto) 0.51 (0.0-1.3) Lymphocytes % 16.8 L (24.0-44.0) % Monocytes % 10.2 (0.0-12.0) % Eosinophils % 1.2 (0.00-5.0) % Basophils % 0.2 (0.0-0.4) % Absolute Granulocytes 3.59 (1.4-6.9) Basophils # 0.01 (0-0.4) Sodium 133 L (137-145) mmol/L Potassium 3.5 (3.5-5.1) mmol/L Chloride 99 (98-107) mmol/L Carbon Dioxide 24 (22-30) mmol/L Anion Gap 13.8 (5-15) MEQ/L BUN 19 (9-20) mg/dL Creatinine 0.81 (0.66-1.25) mg/dL Estimated GFR > 60.0 ML/MIN Glucose 116 H (74-106) mg/dL Calcium 8.9 (8.4-10.2) mg/dL Total Bilirubin 1.10 (0.2-1.3) mg/dL AST 19 (17-59) U/L ALT 6 (0-50) U/L Alkaline Phosphatase 169 H (38-126) U/L Serum Total Protein 6.8 (6.3-8.2) g/dL Albumin 3.9 (3.5-5.0) g/dL Urine Color YELLOW (YELLOW) Urine Appearance CLEAR (CLEAR) Urine pH 5.0 (5-6) Ur Specific [place] 1.018 (1.005-1.025) Urine Protein NEGATIVE (Negative) Urine Ketones TRACE (NEGATIVE) Urine Blood SMALL (0-5) [place]/ul Urine Nitrite NEGATIVE (NEGATIVE) Urine Bilirubin NEGATIVE (NEGATIVE) Urine Urobilinogen NEGATIVE (0-1) mg/dL Ur Leukocyte Esterase MODERATE (NEGATIVE) Urine WBC (Auto) 11-15 (0-5) /HPF Urine RBC (Auto) 0-2 (0-2) /HPF U Hyaline Cast (Auto) 0-2 (0-2) /LPF U Epithel Cells (Auto) RARE (FEW) /HPF Urine Bacteria (Auto) NONE SEEN (NEGATIVE) /HPF Urine Mucus (Auto) SLIGHT (NEGATIVE) /HPF Urine Culture Reflexed YES (NO) Urine Glucose NEGATIVE (NEGATIVE) mg/dL - Progress Progress: improved, re-examined Progress Note: 02/23/21 03:27 CAT scan of the head without contrast shows no acute intracranial abnormality Counseled pt/family regarding: lab results, diagnosis, need for follow-up, rad results - Departure Departure Disposition: Home Clinical Impression: UTI (urinary tract infection), Mild dehydration Condition: Stable Critical Care Time: No Referrals: RADHA CASTAÑEDA [Primary Care Provider] - Additional Instructions: Drink plenty of fluids. Take medication as prescribed. Follow-up with primary care physician for persistent symptoms. Prescriptions: Levofloxacin [Levaquin 500 MG Tablet] 500 mg PO DAILY #7 tablet
[2021-02-23] MEDS ORDERED: Sodium Chloride 0.9% 1000 ML 1,000 ML IV SCH (00:45)
[2021-02-23 00:54] LABS: Absolute Neutrophil Ct (ANC) 3.59 (1.4-6.9); BASOPHIL % 0.2 % (0.0-0.4); Basophil (Absolute #) 0.01 (0-0.4); Eosinophil % 1.2 % (0.00-5.0); Eosinophil (Absolute #) 0.06 (0-0.5); Hematocrit 42.9 % (42-50); Hemoglobin 14.4 gm/dl (12.5-18.0); Lymphocyte (Absolute #) 0.84 (1.0-4.6); Lymphocytes % 16.8 % (24.0-44.0); Mean Cell Volume 98.8 fl (78-100); Mean Corpuscular Hemoglobin 33.2 pg (26-32); Mean Corpuscular Hgb Concent. 33.6 g/dl (32-36); Mean Platelet Volume 10.7 fl (7.5-11.0); Monocyte (Absolute #) 0.51 (0.0-1.3); Monocytes % 10.2 % (0.0-12.0); Neutrophil % 71.6 % (36.0-66.0); Platelet Count 117 K/mm3 (150-450); Red Blood Count 4.34 M/mm3 (4.1-5.6); Red Cell Distribution Width 12.6 % (11.5-14.0)
[2021-02-23 01:04] LABS: ALBUMIN 3.9 g/dL (3.5-5.0); ALKALINE PHOSPHATASE 169 U/L (38-126); ANION GAP 13.8 MEQ/L (5-15); BLOOD UREA NITROGEN 19 mg/dL (9-20); CHLORIDE 99 mmol/L (98-107); Calcium 8.9 mg/dL (8.4-10.2); Carbon Dioxide 24 mmol/L (22-30); Creatinine 1 0.81 mg/dL (0.66-1.25); EST GLOMERULAR FILTRATION RATE > 60.0 ML/MIN; Glucose 116 mg/dL (74-106); Potassium 3.5 mmol/L (3.5-5.1); SGOT/AST 19 U/L (17-59); SGPT/ALT 6 U/L (0-50); SODIUM 133 mmol/L (137-145); Total Protein 6.8 g/dL (6.3-8.2)
[2021-02-23] MEDS ORDERED: Sodium Chloride 0.9% 1000 ML 1,000 ML ONE (01:05)
[2021-02-23 03:17] LABS: Appearance CLEAR (CLEAR); Bacteria NONE SEEN /HPF (NEGATIVE); Bilirubin NEGATIVE (NEGATIVE); Blood SMALL Ery/ul (0-5); Epithelial Cells RARE /HPF (FEW); Glucose NEGATIVE (NEGATIVE); Hyaline Casts 0-2 /LPF (0-2); Ketones TRACE (NEGATIVE); Leukocyte Esterase MODERATE (NEGATIVE); Mucus SLIGHT /HPF (NEGATIVE); Nitrite NEGATIVE (NEGATIVE); Protein,Urine Dip NEGATIVE (Negative); RBC 0-2 /HPF (0-2); Specific Gravity 1.018 (1.005-1.025); Urobilinogen NEGATIVE mg/dL (0-1)
[2021-02-23] MEDS ORDERED: ROCEPHIN 1 Gm-D5w 50 ml Bag** 1 G/50 ML IVPB IV STA (03:25)
[2021-02-23] MEDS ORDERED: ROCEPHIN 1 Gm-D5w 50 ml Bag** 1 G/50 ML IVPB IV ONE (03:27)
[2021-02-23 04:15] VITALS: BP 166/85; PULSE 86; O2SAT 97
--- NOTE | 2021-02-23 07:25 | XRAY ---
Indication: Headache and dizziness. History of CVA and Parkinson's. Multiple contiguous axial images obtained through the head without contrast. Comparison: August 20, 2020. Again age-appropriate global atrophy, mild periventricular degenerative micro-ischemia, and small focus old infarct left mid centrum semiovale. No acute intracranial hemorrhage, abnormal extra-axial fluid collection, or mass effect. Fourth ventricle is midline without hydrocephalus. Bony calvarium intact. Visualized paranasal sinuses and mastoid air cells are clear. Impression: Continued nonacute senile brain with small old infarct left centrum semiovale. Comment: Preliminary interpretation made by [facility]. No critical discrepancy.
== END 2021-02-23 04:12 | disposition home or self-care (01) ==
LOC: ED 00:23
DX: N39.0 Urinary tract infection, site not specified (principal); E86.0 Dehydration; I10 Essential (primary) hypertension; G20 Parkinson's disease; Z86.73 Personal history of transient ischemic attack (TIA), and cerebral infarction without residual deficits; R42 Dizziness and giddiness; J44.9 Chronic obstructive pulmonary disease, unspecified; Z79.899 Other long term (current) drug therapy
CPT/HCPCS: 36000; 36415; 70450; 80053; 81001; 85025; 87086; 93005; 94760; 96360; 96361; 99284; J0696

== ENCOUNTER 2021-02-27 13:46 | Emergency (ER) | payer MEDICARE ==
[2021-02-27] MEDS ORDERED: MORPHINE SULFATE 2 MG INJ IV ONE (15:43)
[2021-02-27] MEDS ORDERED: Sodium Chloride 0.9% 1000 ML 1,000 ML IV SCH (15:45)
--- NOTE | 2021-02-27 15:52 | ERPHSYRPT ---
- History of Present Illness Time Seen by Provider: 02/27/21 14:20 Historian: patient Exam Limitations: no limitations Patient Subjective Stated Complaint: pt here for not getting better after being treatedfor UTI last week, pt had 2 more days of antibotics, he is drinking but not eating well Triage Nursing Assessment: pt alert, has fine tremors,resp easy, face mask in place, abd soft Physician History: Patient is a 75-year-old male presents to our ED with his for evaluation of testicular pain and lower abdominal discomfort. Patient is not sure whether his symptoms are stemming from a urinary tract infection that he has been treating for the past several weeks. Patient does experience some dysuria. Patient expresses tenderness at both testicles. No trauma. No fever. No nausea or vomiting. Symptoms are mild to moderate in intensity. Palpation to the testicles reproduce symptoms. Patient voices no other complaints concerns at this time. Timing/Duration: week(s) (2 weeks) Activities at Onset: none Quality: aching Abdominal Pain Onset Location: other (Lower abdomen and testicles.) Pain Radiation: no radiation Severity of Pain-Max: moderate Severity of Pain-Current: mild Modifying Factors: Improves With: palpation Associated Symptoms: testicular pain, No diarrhea, No nausea, No vomiting Previous symptoms: no prior history Allergies/Adverse Reactions: No Known Drug Allergies Allergy (Verified 02/27/21 14:22) Home Medications: Aspirin 81 mg PO DAILY 02/14/17 [History] Isosorbide Mononitrate 30 mg [Imdur 30 MG] 30 mg PO DAILY 02/14/17 [History] Losartan Potassium 25 mg PO DAILY 02/14/17 [History] Carbidopa/Levodopa [Carbidopa-Levo ER 50-200 Tab] 1 each PO QID 06/10/19 [His tory] Amantadine HCl [Amantadine] 100 mg PO BID 08/20/20 [History] Cholecalciferol (Vitamin D3) [Vitamin D3] 50,000 units PO WEEKLY 08/20/20 [History] Hx Tetanus, Diphtheria Vaccination/Date Given: Yes Hx Influenza Vaccination/Date Given: Yes Hx Pneumococcal Vaccination/Date Given: Yes Immunizations Up to Date: Yes Travel Risk - International Travel Have you traveled outside of the country in past 3 weeks: No - Coronavirus Screening Are you exhibiting any of the following symptoms?: No - Vaccine Status Have you recieved a Covid-19 vaccination: Yes [employer]: Moderna - Vaccination Dates Date of 2cond Vaccination (if applicable): 11/04/20 - Review of Systems Constitutional: No Symptoms, No Fever, No Chills Eyes: No Symptoms Ears, Nose, & Throat: No Symptoms Respiratory: No Symptoms, No Cough, No Dyspnea Cardiac: No Symptoms, No Chest Pain, No Edema, No Syncope Abdominal/Gastrointestinal: No Symptoms, No Abdominal Pain, No Nausea, No Vomiting, No Diarrhea Genitourinary Symptoms: No Symptoms, No Dysuria Musculoskeletal: No Symptoms, No Back Pain, No Neck Pain Skin: No Symptoms, No Rash Neurological: No Symptoms, No Dizziness, No Focal Weakness, No Sensory Changes Psychological: No Symptoms Endocrine: No Symptoms Hematologic/Lymphatic: No Symptoms Immunological/Allergic: No Symptoms All Other Systems: Reviewed and Negative - Past Medical History Pertinent Past Medical History: Yes Neurological History: Stroke, Other Cardiac History: High Cholesterol, Hypertension Respiratory History: COPD Other Medical History: HAD CVA A FEW YEARS AGO AND WAS HOPSITALIZED FOR A FEW WEEKS. HE IS NOW ON BLOOD THINNERS TO PREVENT FURTHER CVA. parkinsons - Past Surgical History Past Surgical History: Yes Gastrointestinal: Appendectomy - Social History Smoking Status: Former smoker Exposure to second hand smoke: Yes Drug Use: none Patient Lives Alone: No - Nursing Vital Signs Nursing Vital Signs: Initial Vital Signs Temperature 98.1 F 02/27/21 14:16 Pulse Rate 73 02/27/21 14:16 Respiratory Rate 18 02/27/21 14:16 Blood Pressure 94/69 02/27/21 14:16 O2 Sat by Pulse Oximetry 94 L 02/27/21 14:16 Pain Scale Pain Intensity 5 - Physical Exam General Appearance: no apparent distress, alert Eye Exam: PERRL/EOMI, eyes nml inspection Ears, Nose, Throat Exam: normal ENT inspection, pharynx normal, moist mucous membranes Neck Exam: normal inspection, non-tender, supple, full range of motion Respiratory Exam: normal breath sounds, lungs clear, No respiratory distress Cardiovascular Exam: regular rate/rhythm, normal heart sounds Gastrointestinal/Abdomen Exam: soft, other, No tenderness, No mass Back Exam: normal inspection, normal range of motion, No CVA tenderness, No vertebral tenderness Extremity Exam: normal inspection, normal range of motion, pelvis stable Neurologic Exam: alert, oriented x 3, cooperative, normal mood/affect, nml cerebellar function, sensation nml, No motor deficits Skin Exam: normal color, warm, dry SpO2: 95 - Course Nursing assessment & vital signs reviewed: Yes Ordered Tests: Active Orders 24 hr Category Date Time Status IV Insertion STAT Care 02/27/21 15:43 Active ABDOMEN AND PELVIS W CONTRAST [CT] Stat Exams 02/27/21 15:45 Completed TESTICLE [US] Stat Exams 02/27/21 15:46 Completed BLOOD CULTURE Stat Lab 02/27/21 19:37 Received CBC W DIFF Stat Lab 02/27/21 15:53 Completed CMP Stat Lab 02/27/21 15:53 Completed LIPASE Stat Lab 02/27/21 15:53 Completed TROPONIN Stat Lab 02/27/21 15:53 Completed UA W/RFX UR CULTURE Stat Lab 02/27/21 15:54 Completed Medication Summary Generic Name Dose Route Start Last Admin Trade Name Freq PRN Reason Stop Dose Admin Sodium Chloride 1,000 mls @ 100 mls/hr 02/27/21 15:45 02/27/21 15:59 Sodium Chloride 0.9% 1000 Ml IV 03/29/21 15:44 100 mls/hr .Q10H VAN Administration Azithromycin / Sodium Chloride 250 mls @ 125 mls/hr 02/27/21 19:14 IV 02/27/21 21:13 STAT ONE Potassium Chloride 20 meq in 100 mls @ 50 mls/hr 02/27/21 19:30 02/27/21 19:32 Potassium Chloride 20 Meq In Water 100ml IV 02/27/21 23:29 50 mls/hr Q2H VAN Administration Discontinued Medications Generic Name Dose Route Start Last Admin Trade Name Freq PRN Reason Stop Dose Admin Dexamethasone Sodium Phosphate 8 mg 02/27/21 20:36 02/27/21 20:39 Decadron 10mg Inj. IV 02/27/21 20:37 8 mg STAT ONE Administration Dexamethasone Sodium Phosphate Confirm 02/27/21 20:38 Decadron 10mg Inj. Administered 02/27/21 20:39 Dose 10 mg .ROUTE .STK-MED ONE Ceftriaxone Sodium/Dextrose 2 g in 50 mls @ 100 mls/hr 02/27/21 19:14 02/27/21 20:37 Rocephin 2 Gm-D5w 50ml Bag IV 02/27/21 19:43 Infused STAT STA Infusion Ceftriaxone Sodium/Dextrose Confirm 02/27/21 19:19 Rocephin 2 Gm-D5w 50ml Bag Administered 02/27/21 19:20 Dose 2 g in 50 mls @ ud IV .STK-MED ONE Morphine Sulfate 2 mg 02/27/21 15:43 02/27/21 15:59 Morphine Sulfate 2 Mg Inj IV 02/27/21 15:44 2 mg STAT ONE Administration Morphine Sulfate Confirm 02/27/21 15:57 Morphine Sulfate 2 Mg Inj Administered 02/27/21 15:58 Dose 2 mg .ROUTE .STK-MED ONE Lab/Rad Data: Laboratory Result Diagrams 02/27/21 15:53 02/27/21 15:53 Laboratory Results 02/27/21 02/27/21 02/27/21 Range/Units 19:40 15:54 15:53 WBC (4.0-10.5) K/mm3 RBC (4.1-5.6) M/mm3 Hgb (12.5-18.0) gm/dl Hct (42-50) % MCV (78-100) fl MCH (26-32) pg MCHC (32-36) g/dl RDW (11.5-14.0) % Plt Count (150-450) K/mm3 MPV (7.5-11.0) fl Gran % (36.0-66.0) % Eos # (Auto) (0-0.5) Absolute Lymphs (auto) (1.0-4.6) Absolute Monos (auto) (0.0-1.3) Lymphocytes % (24.0-44.0) % Monocytes % (0.0-12.0) % Eosinophils % (0.00-5.0) % Basophils % (0.0-0.4) % Absolute Granulocytes (1.4-6.9) Basophils # (0-0.4) Sodium (137-145) mmol/L Potassium (3.5-5.1) mmol/L Chloride (98-107) mmol/L Carbon Dioxide (22-30) mmol/L Anion Gap (5-15) MEQ/L BUN (9-20) mg/dL Creatinine (0.66-1.25) mg/dL Estimated GFR ML/MIN Glucose (74-106) mg/dL Calcium (8.4-10.2) mg/dL Total Bilirubin (0.2-1.3) mg/dL AST (17-59) U/L ALT (0-50) U/L Alkaline Phosphatase (38-126) U/L Troponin I 0.013 (0.000-0.034) ng/mL Serum Total Protein (6.3-8.2) g/dL Albumin (3.5-5.0) g/dL Lipase (23-300) U/L Urine Color YELLOW (YELLOW) Urine Appearance CLEAR (CLEAR) Urine pH 5.0 (5-6) Ur Specific [place] 1.021 (1.005-1.025) Urine Protein 30 (Negative) Urine Ketones TRACE (NEGATIVE) Urine Blood NEGATIVE (0-5) [place]/ul Urine Nitrite NEGATIVE (NEGATIVE) Urine Bilirubin NEGATIVE (NEGATIVE) Urine Urobilinogen NEGATIVE (0-1) mg/dL Ur Leukocyte Esterase NEGATIVE (NEGATIVE) Urine WBC (Auto) 0-2 (0-5) /HPF Urine RBC (Auto) NONE (0-2) /HPF U Hyaline Cast (Auto) 3-5 (0-2) /LPF U Epithel Cells (Auto) RARE (FEW) /HPF Urine Bacteria (Auto) RARE (NEGATIVE) /HPF Urine Mucus (Auto) SLIGHT (NEGATIVE) /HPF Urine Culture Reflexed NO (NO) Urine Glucose NEGATIVE (NEGATIVE) mg/dL SARS-CoV-2 (PCR) POSITIVE A (NEGATIVE) 02/27/21 02/27/21 Range/Units 15:53 15:53 WBC 2.5 L (4.0-10.5) K/mm3 RBC 4.07 L (4.1-5.6) M/mm3 Hgb 13.5 (12.5-18.0) gm/dl Hct 40.1 L (42-50) % MCV 98.5 (78-100) fl MCH 33.2 H (26-32) pg MCHC 33.7 (32-36) g/dl RDW 13.0 (11.5-14.0) % Plt Count 91 L (150-450) K/mm3 MPV 10.3 (7.5-11.0) fl Gran % 73.0 H (36.0-66.0) % Eos # (Auto) 0.03 (0-0.5) Absolute Lymphs (auto) 0.40 L (1.0-4.6) Absolute Monos (auto) 0.25 (0.0-1.3) Lymphocytes % 15.9 L (24.0-44.0) % Monocytes % 9.9 (0.0-12.0) % Eosinophils % 1.2 (0.00-5.0) % Basophils % 0.0 (0.0-0.4) % Absolute Granulocytes 1.84 (1.4-6.9) Basophils # 0 (0-0.4) Sodium 132 L (137-145) mmol/L Potassium 3.2 L (3.5-5.1) mmol/L Chloride 93 L (98-107) mmol/L Carbon Dioxide 29 (22-30) mmol/L Anion Gap 13.5 (5-15) MEQ/L BUN 31 H (9-20) mg/dL Creatinine 1.05 (0.66-1.25) mg/dL Estimated GFR > 60.0 ML/MIN Glucose 94 (74-106) mg/dL Calcium 8.2 L (8.4-10.2) mg/dL Total Bilirubin 1.00 (0.2-1.3) mg/dL AST 40 (17-59) U/L ALT 8 (0-50) U/L Alkaline Phosphatase 83 (38-126) U/L Troponin I (0.000-0.034) ng/mL Serum Total Protein 6.6 (6.3-8.2) g/dL Albumin 3.6 (3.5-5.0) g/dL Lipase 85 (23-300) U/L Urine Color (YELLOW) Urine Appearance (CLEAR) Urine pH (5-6) Ur Specific [place] (1.005-1.025) Urine Protein (Negative) Urine Ketones (NEGATIVE) Urine Blood (0-5) [place]/ul Urine Nitrite (NEGATIVE) Urine Bilirubin (NEGATIVE) Urine Urobilinogen (0-1) mg/dL Ur Leukocyte Esterase (NEGATIVE) Urine WBC (Auto) (0-5) /HPF Urine RBC (Auto) (0-2) /HPF U Hyaline Cast (Auto) (0-2) /LPF U Epithel Cells (Auto) (FEW) /HPF Urine Bacteria (Auto) (NEGATIVE) /HPF Urine Mucus (Auto) (NEGATIVE) /HPF Urine Culture Reflexed (NO) Urine Glucose (NEGATIVE) mg/dL SARS-CoV-2 (PCR) (NEGATIVE) - Progress Progress: improved Progress Note: Patient presented to our ED with complaints of testicular pain and lower abdominal pain. Ultrasound testicles essentially nonremarkable. CT abdomen pelvis incidentally showed bilateral pneumonia. We are going to admit patient for pneumonia assuming it was bacterial. However Covid testing for admission revealed Covid positive status. Pneumonia likely Covid not bacterial. Case discussed with Dr. Moran who advises a dose of Decadron and discharged home in light of the fact that patient's vitals and oxygenation are within normal limits. Patient and family are comfortable with this plan. They voiced no other complaints or concerns at this time. Will discharge home. They agree to follow-up with patient's primary care doctor within 48 hours for reevaluation. Portions of this note were created with voice recognition technology. There may be grammatical, spelling, punctuation or sound alike errors 02/27/21 20:[address] Moran if patient's condition worsens due to Covid patient may receive [place] cov. 02/27/21 20:46 Patient's lab findings are consistent with COVID-19. Potassium replaced. IV fluids infused for hyponatremia. 02/27/21 20:49 Counseled pt/family regarding: lab results, diagnosis - Departure Departure Disposition: Home Clinical Impression: Bilateral pneumonia, Pneumonia due to COVID-19 virus, Hypokalemia, Hyponatremia, Leukopenia, Thrombocytopenia, Epididymal cyst Condition: Stable Critical Care Time: No Referrals: RADHA CASTAÑEDA [Primary Care Provider] - Additional Instructions: Discharge/Care Plan SHANKAR VIVEROS was seen on 02/27/21 in the Emergency Room. The patient was counseled regarding Diagnosis,Lab results, Imaging studies, need for follow up and when to return to the Emergency Room. Prescriptions given: Discharge Note I have spoken with the patient and/or caregivers. I have explained the patient's condition, diagnosis and treatment plan based on the information available to me at this time. I have answered the patient's and/or caregiver's questions and addressed any concerns. The patient and/or caregivers have as good understanding of the patient's diagnosis, condition and treatment plan as can be expected at this point. The vital signs have been stable. The patient's condition is stable and appropriate for discharge from the emergency department. The patient will pursue further outpatient evaluation with the primary care physician or other designated or consulting physician as outlined in the discharge instructions. The patient and/or caregivers are agreeable to this plan of care and follow-up instructions have been explained in detail. The patient and/or caregivers have received these instruction. The patient/and or caregivers are aware that any significant change in condition or worsening of symptoms should prompt an immediate return to this or the closest emergency department or call 911.
[2021-02-27] MEDS ORDERED: Sodium Chloride 0.9% 1000 ML 1,000 ML ONE (15:57)
[2021-02-27] MEDS ORDERED: MORPHINE SULFATE 2 MG INJ ONE (15:57)
[2021-02-27 16:00] LABS: Absolute Neutrophil Ct (ANC) 1.84 (1.4-6.9); Basophil (Absolute #) 0 (0-0.4); Eosinophil % 1.2 % (0.00-5.0); Eosinophil (Absolute #) 0.03 (0-0.5); Hematocrit 40.1 % (42-50); Hemoglobin 13.5 gm/dl (12.5-18.0); Lymphocytes % 15.9 % (24.0-44.0); Mean Cell Volume 98.5 fl (78-100); Mean Corpuscular Hemoglobin 33.2 pg (26-32); Mean Corpuscular Hgb Concent. 33.7 g/dl (32-36); Mean Platelet Volume 10.3 fl (7.5-11.0); Monocyte (Absolute #) 0.25 (0.0-1.3); Monocytes % 9.9 % (0.0-12.0); Platelet Count 91 K/mm3 (150-450); Red Blood Count 4.07 M/mm3 (4.1-5.6); White Blood Count 2.5 K/mm3 (4.0-10.5)
[2021-02-27 16:12] LABS: ALBUMIN 3.6 g/dL (3.5-5.0); ALKALINE PHOSPHATASE 83 U/L (38-126); ANION GAP 13.5 MEQ/L (5-15); BLOOD UREA NITROGEN 31 mg/dL (9-20); CHLORIDE 93 mmol/L (98-107); Calcium 8.2 mg/dL (8.4-10.2); Carbon Dioxide 29 mmol/L (22-30); Creatinine 1 1.05 mg/dL (0.66-1.25); EST GLOMERULAR FILTRATION RATE > 60.0 ML/MIN; Glucose 94 mg/dL (74-106); LIPASE 85 U/L (23-300); Potassium 3.2 mmol/L (3.5-5.1); SGOT/AST 40 U/L (17-59); SGPT/ALT 8 U/L (0-50); SODIUM 132 mmol/L (137-145); Total Protein 6.6 g/dL (6.3-8.2)
[2021-02-27 16:15] LABS: Appearance CLEAR (CLEAR); Bacteria RARE /HPF (NEGATIVE); Bilirubin NEGATIVE (NEGATIVE); Blood NEGATIVE Ery/ul (0-5); Epithelial Cells RARE /HPF (FEW); Glucose NEGATIVE (NEGATIVE); Ketones TRACE (NEGATIVE); Leukocyte Esterase NEGATIVE (NEGATIVE); Mucus SLIGHT /HPF (NEGATIVE); Nitrite NEGATIVE (NEGATIVE); Protein,Urine Dip 30 (Negative); Specific Gravity 1.021 (1.005-1.025); Urobilinogen NEGATIVE mg/dL (0-1); WBC 0-2 /HPF (0-5)
--- NOTE | 2021-02-27 16:45 | XRAY ---
Indication: Abdomen pain. Multiple contiguous axial images obtained through the abdomen and pelvis using 80 cc Isovue 370 contrast. Comparison: None Lung bases demonstrates right lower lobe and lesser degree right middle/ left lower lobe infiltrates. No effusion. Small right lower lobe calcified granuloma. Heart not enlarged. Study is degraded by respiration artifact throughout. Noncontrasted stomach and bowel loops appear nonobstructed. Previous appendectomy. No free fluid/air. Splenomegaly measuring 13.2 cm with calcified granulomas. Remaining liver, gallbladder, pancreas, spleen, adrenal glands, kidneys, ureters, and bladder are unremarkable. Moderate scattered aortoiliac calcifications. No AAA or pathologic retroperitoneal lymphadenopathy. Osseous structures intact with mild degenerative changes throughout the lumbar spine. Impression: 1. Respiration artifact. 2. Splenomegaly, chronic bony findings, and old granulomatous disease. 3. Incidental right middle, right lower, and left lower lobe pneumonias.
--- NOTE | 2021-02-27 17:12 | XRAY ---
Indication: Pain. Two-dimensional testicular sonogram performed. Comparison: None Both testicles homogeneous in echogenicity with normal color perfusion. Right testicle measures 4.2 x 1.4 x 2.8 cm and the left measures 3.7 x 1.6 x 2.7 cm. Right epididymis demonstrates at least 3 tiny cysts, largest 4 mm. Left epididymis sonographically unremarkable. No suspicious extra testicular mass or hydrocele. Impression: Tiny right epididymal cysts. Remaining testicle sonogram is negative.
[2021-02-27] MEDS ORDERED: ROCEPHIN 2 Gm-D5w 50ML BAG** 2 G/50 ML IVPB IV STA (19:14)
[2021-02-27] MEDS ORDERED: ZITHROMAX IV*** 500 MG in Sodium Chloride 0.9% 250 ML 250 ML IV ONE (19:14)
[2021-02-27] MEDS ORDERED: ROCEPHIN 2 Gm-D5w 50ML BAG** 2 G/50 ML IVPB IV ONE (19:19)
[2021-02-27] MEDS ORDERED: POTASSIUM CHLORIDE 20 mEq IN WATER 100ML 200 ML IV ONE (19:30)
[2021-02-27] MEDS: POTASSIUM CHLORIDE 20 mEq IN WATER 100ML 20 MEQ/100 ML BAG IV SCH (19:32)
[2021-02-27] MEDS ORDERED: DECADRON 10MG INJ. IV ONE (20:36)
[2021-02-27] MEDS ORDERED: DECADRON 10MG INJ. ONE (20:38)
[2021-02-27 20:50] VITALS: BP 141/85; PULSE 68; O2SAT 95
== END 2021-02-27 20:58 | disposition home or self-care (01) ==
LOC: ED 13:46
DX: U07.1 COVID-19 (principal); J12.89 Other viral pneumonia; E87.6 Hypokalemia; E87.1 Hypo-osmolality and hyponatremia; D72.819 Decreased white blood cell count, unspecified; D69.6 Thrombocytopenia, unspecified; L72.0 Epidermal cyst
CPT/HCPCS: 36000; 36415; 74177; 76870; 80053; 81001; 83690; 84484; 85025; 87040; 96374; 99284; U0003; J0696; J1100; J2270; J3480